=== PATIENT | male | born 1975 | race Caucasian/White ===

== ENCOUNTER 2018-04-24 15:21 | Emergency (ER) | payer SELFPAY ==
[2018-04-24 15:37] VITALS: BP 128/74
--- NOTE | 2018-04-24 17:53 | ER Document Report ---
ED General - General Chief Complaint: Toothache Stated Complaint: MOUTH PAIN Time Seen by Provider: 04/24/18 17:35 Mode of Arrival: Ambulatory Information source: Patient TRAVEL OUTSIDE OF THE [place] IN LAST 30 DAYS: No - HPI Notes: Patient is a 43-year-old male history of [id number] diabetes presents with report of toothache pain in the right upper dental area. The patient denies any fever or chills and reports toothache for the past week getting worse, worse when he lays down flat and does not elevate the area. The patient states the #1 tooth came out about a year ago, and this is the #2 tooth adjacent. The patient denies any nausea or vomiting or chest pain or difficulty breathing. He states he checked his blood sugar this morning and it was in the 100 range, which is good for him. Patient takes Glucophage for diabetes management. - Related Data Allergies/Adverse Reactions: No Known Allergies Allergy (Unverified 04/24/18 15:33) Past Medical History - General Information source: Patient - Social History Smoking Status: Current Every Day Smoker Chew tobacco use (# tins/day): No Frequency of alcohol use: None Drug Abuse: Marijuana Lives with: Alone Family History: Reviewed & Not Pertinent Patient has suicidal ideation: No Patient has homicidal ideation: No Endocrine Medical History: Reports: Hx Diabetes Mellitus Type 2 Renal/ Medical History: Denies: Hx Peritoneal Dialysis Past Surgical History: Reports: Hx Orthopedic Surgery - roatator cuff Left side , carpal tunnel L side, L5 S1 Review of Systems - Review of Systems -: Yes All other systems reviewed and negative Physical Exam - Vital signs Vitals: Temp Pulse Resp BP Pulse Ox 98.1 F 100 20 128/74 H 96 04/24/18 15:36 04/24/18 15:36 04/24/18 15:36 04/24/18 15:36 04/24/18 15:36 - Notes Notes: PHYSICAL EXAMINATION: GENERAL: Well-appearing, well-nourished and in no acute distress. HEAD: Atraumatic, normocephalic. EYES: Pupils equal round and reactive to light, extraocular movements intact, sclera anicteric, conjunctiva are normal. ENT: Nares patent, oropharynx clear without exudates. Moist mucous membranes. Overall dentition is intact. There is multiple dental caries which have been filled. #1 tooth is missing in the mucosa covers the area entirely. The patient seems to localize more of his pain to tooth #2 which has a cavity which is been filled and no obvious erythema, but there is significant pain with palpation to the area. No posterior pharyngeal swelling. No facial cellulitis. Otherwise dentition intact with the exception of #18 tooth which is fractured to the outside edge and is without evidence for abscess. NECK: Normal range of motion, supple without lymphadenopathy LUNGS: Breath sounds clear to auscultation bilaterally and equal. No wheezes rales or rhonchi. HEART: Regular rate and rhythm without murmurs ABDOMEN: Soft, nontender, nondistended abdomen. PSYCH: Normal mood, normal affect. SKIN: Warm, Dry, normal turgor, no rashes or lesions noted. Course - Re-evaluation Re-evalutation: 04/24/18 17:53 No evidence for obvious abscess or diabetic complication. - Vital Signs Vital signs: Temp Pulse Resp BP Pulse Ox 98.1 F 100 20 128/74 H 96 04/24/18 15:36 04/24/18 15:36 04/24/18 15:36 04/24/18 15:36 04/24/18 15:36 Discharge - Discharge Clinical Impression: Toothache, Dental caries Condition: Stable Disposition: HOME, SELF-CARE Instructions: Toothache ([facility]), Penicillin V K ([facility]) Additional Instructions: Follow-up with local dentist for evaluation and x-rays to check for infection into the dental root. Prescriptions: Tramadol HCl [Ultram 50 mg Tablet] 50 mg PO Q4HP PRN #20 tab PRN Reason: Diclofenac Sodium 75 mg PO Q12HP PRN #30 tablet. PRN Reason: Penicillin V Potassium [Penicillin Vk 500 mg Tablet] 500 mg PO QID #28 tablet Forms: Return to Work
[2018-04-24] MEDS ORDERED: ACETAMINOPHEN 325 MG TABLET PO ONE (18:33)
== END 2018-04-24 18:49 | disposition home or self-care (01) ==
LOC: ER 15:21
DX: K02.9 Dental caries, unspecified (principal); K08.89 Other specified disorders of teeth and supporting structures; E11.9 Type 2 diabetes mellitus without complications; Z79.84 Long term (current) use of oral hypoglycemic drugs; F17.200 Nicotine dependence, unspecified, uncomplicated
CPT/HCPCS: 99282